=== PATIENT | female | born 1995 | race Caucasian/White ===

== ENCOUNTER 2024-11-15 07:07 | Emergency (ER) | payer SELFPAY ==
[~2024-11-15] VITALS: Ht 162.6 cm; Wt 60.0 kg
[2024-11-15 07:10] VITALS: O2SAT 98
[2024-11-15] MEDS ORDERED: HYDROCODONE/ACETAMINOPHEN 5/325MG TABLET PO STA (09:06)
[2024-11-15] MEDS: BACITRACIN ZINC OINT UDPKT TOP ONE (10:46)
[2024-11-15] MEDS: HYDROCODONE/ACETAMINOPHEN 5/325MG TABLET PO NR (10:47)
[2024-11-15] MEDS: ONDANSETRON HCL 4MG/2ML INJ IM NR (14:29)
[2024-11-15] MEDS ORDERED: NAPR-681 PO (15:14)
[2024-11-15 15:50] VITALS: BP 110/68; PULSE 74; RESP 16; TEMP 36.8; O2SAT 98
== END 2024-11-15 15:50 | disposition home or self-care (01) ==
LOC: ER 07:07
DX: S16.1XXA Strain of muscle, fascia and tendon at neck level, initial encounter (principal); I10 Essential (primary) hypertension; V89.2XXA Person injured in unspecified motor-vehicle accident, traffic, initial encounter; X58.XXXA Exposure to other specified factors, initial encounter; Y93.89 Activity, other specified; Y92.89 Other specified places as the place of occurrence of the external cause; Y99.8 Other external cause status
CPT/HCPCS: 81025; 73522; 73630; 72125; 96372; 99285; J2405; Z7610 ×4; A4606

== ENCOUNTER 2024-12-15 14:36 | Emergency (ER) | payer MEDICAID ==
[~2024-12-15] VITALS: Ht 162.6 cm; Wt 50.8 kg
[~2024-12-15 14:36] MED LIST: NAPR-681 PO
[2024-12-15 14:48] VITALS: TEMP 36.9; O2SAT 98
[2024-12-15] MEDS: IBUPROFEN 600MG TABLET PO ONE (15:45)
[2024-12-15] MEDS: TETANUS, DIPHTHERIA, PERTUSSIS VAC/PF 0.5ML (>10YR OLD) IM ONE (15:45)
[2024-12-15] MEDS: BACITRACIN ZINC OINT UDPKT TOP ONE (15:45)
[2024-12-15] MEDS ORDERED: CEPH500C2 MT (16:45)
[2024-12-15] MEDS ORDERED: ACET-2708 MT (16:45)
[2024-12-15 17:03] VITALS: BP 119/86; PULSE 83; RESP 16; O2SAT 100
== END 2024-12-15 17:05 | disposition home or self-care (01) ==
LOC: ER 14:50
DX: S61.411A Laceration without foreign body of right hand, initial encounter (principal); Y04.1XXA Assault by human bite, initial encounter; Y93.89 Activity, other specified; Y92.009 Unspecified place in unspecified non-institutional (private) residence as the place of occurrence of the external cause; Y99.8 Other external cause status
CPT/HCPCS: 73130; 90471; 90715; 99283

== ENCOUNTER 2024-12-22 22:52 | Emergency (ER) | payer MEDICAID ==
[~2024-12-22] VITALS: Ht 165.1 cm; Wt 50.4 kg
[~2024-12-22 22:52] MED LIST changes: +ACET-2708 MT; +CEPH500C2 MT
[2024-12-22 23:25] VITALS: O2SAT 100
[2024-12-23] MEDS: DIPHENHYDRAMINE 50MG/ML VIAL IV ONE (00:07)
[2024-12-23] MEDS: METHYLPREDNISOLONE SOD SUCC 125MG/2ML (ACT-O-VIAL) IV ONE (00:07)
[2024-12-23] MEDS: FAMOTIDINE 20MG/2ML VIAL IV ONE (00:07)
[2024-12-23] MEDS: SODIUM CHLORIDE 0.9% 1,000 ML IV ONE (00:08)
[2024-12-23 00:48] LABS: HEMATOCRIT. 39.4 % (36.0-48.0); HEMOGLOBIN. 13.3 g/dL (12.0-16.0); MEAN CORPUSCULAR HEMOGLOBIN 27.3 pg (28.0-32.0); MEAN CORPUSCULAR HGB CONC 33.8 g/dL (31.0-37.0); MEAN CORPUSCULAR VOLUME 80.9 fL (81.0-99.0); MEAN PLATELET VOLUME 8.8 fl (7.4-10.4); PLATELET 267 x1000/uL (130-400); RED BLOOD CELL COUNT 4.88 mill/uL (4.2-5.4); RED CELL DISTRIBUTION WIDTH 13.1 % (11.6-14.6); WHITE BLOOD COUNT 10.4 x1000/uL (4.5-11.0)
[2024-12-23 00:52] LABS: DIFFERENTIAL COMMENT 1
[2024-12-23 00:53] LABS: CHLORIDE 102 mEq/L (98-107); POTASSIUM 3.9 mEq/L (3.5-5.1); SODIUM 134 mEq/L (136-145)
[2024-12-23 00:54] LABS: CARBON DIOXIDE 25 mEq/L (21-32)
[2024-12-23 00:55] LABS: CALCIUM 9.3 mg/dL (8.7-10.4)
[2024-12-23 00:59] LABS: CREATININE 0.7 mg/dL (0.6-1.0); GLUCOSE 114 mg/dL (70-105); UREA NITROGEN BLOOD 9 mg/dL (9-23)
[2024-12-23 01:12] LABS: TROPONIN I HIGH SENSITIVITY < 4 ng/L (3.0-34)
[2024-12-23 01:16] LABS: HCG SCREEN NEGATIVE
[2024-12-23] MEDS ORDERED: DIPH25TA62 MT (01:29)
[2024-12-23] MEDS ORDERED: P20 MT (01:29)
[2024-12-23] MEDS ORDERED: EPIN0.3P3 IM (01:29)
[2024-12-23] MEDS ORDERED: FAMO-135 MT (01:29)
[2024-12-23 01:43] VITALS: BP 99/61; PULSE 107; RESP 20; TEMP 37.3; O2SAT 100
[2024-12-23 03:54] LABS: PLATELET ESTIMATE NORMAL
== END 2024-12-23 02:03 | disposition home or self-care (01) ==
LOC: ER 22:52
DX: T78.2XXA Anaphylactic shock, unspecified, initial encounter (principal); T78.40XA Allergy, unspecified, initial encounter; R21 Rash and other nonspecific skin eruption; Y92.89 Other specified places as the place of occurrence of the external cause
CPT/HCPCS: 36415; 71045; 93005; 99285; 80048; 84703; 85025; 84484; 96361; 96374; 96375; J1200; J3490; J2919; J7030; Z7610 ×4; A4606